=== PATIENT | male | born 1985 | race Caucasian/White ===

== ENCOUNTER → 2016-05-05 | Outpatient (CLI) | payer BC ==
[2016-05-05 13:54] LABS: DAYS OF ABSTINENCE 3; METHOD OF COLLECTION MASTURBATION; SEMEN TIME OF COLLECTION 1000; TYPE OF SPECIMEN CONTAINER STERILE CUP
[2016-05-05 13:55] LABS: SEMEN COLOR GRAY OR GRAY-WHITE (GRY/GRYWHTE); SEMEN VOLUME 2.5 ML (>1.5); SPERM VIABILITY STAIN NOT INDICATED % (>58%)
== END | disposition home or self-care (01) ==
LOC: C.LAB 10:33
PROVIDERS: ATTEND Obstetrics & Gynecology Reproductive Endocrinology
DX: N46.9 Male infertility, unspecified (principal)